=== PATIENT | female | born 1925 | race Caucasian/White ===

== ENCOUNTER 2017-09-03 10:57 | Emergency (ER) | payer MEDICARE, OTHER ==
[2017-09-03] MEDS ORDERED: LIDOCAINE 1% 10 ML VIAL INJ ONE (11:07)
[2017-09-03 11:17] VITALS: O2SAT 97
[2017-09-03] MEDS ORDERED: TETANUS,DIPHTHERIA,PERTUSSIS 1 EA SYG IM ONE (11:45)
[2017-09-03] MEDS ORDERED: SULFA/TRIMETH 800/160 (DS) TAB 1 EA TAB PO ONE (11:45)
--- NOTE | 2017-09-03 11:48 | ED.PDOC ---
History of Present Illness - General Chief Complaint: Laceration Stated Complaint: R hand laceration Time Seen by Provider: 09/03/17 11:43 Source: patient Exam Limitations: no limitations - History of Present Illness Initial Comments: The patient is an 89-year-old female that drove herself in after having injured her right hand while helping her pen cattle. She cut her right hand over the dorsal aspect of the fourth and fifth knuckles with a piece of tin. It does not appear to have lacerated any tendons or ligaments. No evidence of any extension to any joint or any overt fracture. She has good sensation of the tips of her fingers before and after repair. She does have a mild area of decreased sensation just distal to the laceration. Laceration is U shape and approximately 2 inches in length. No other injuries. She does not take any blood thinners. She does not think she is up-to-date on her tetanus. Timing/Duration: momentarily Severity: mild Improving Factors: nothing Worsening Factors: nothing Associated Symptoms: denies symptoms Allergies/Adverse Reactions: Allergies NO KNOWN ALLERGY Allergy (Verified 09/03/17 11:02) Home Medications: Ambulatory Orders Olmesartan Medoxomil-Hydrochlo [Benicar Hct 20-12.5 mg] 1 tab PO BID 09/03/17 Sulfa/Trimeth 800/160 (Ds) Tab [Bactrim DS Tab] 1 ea PO DAILY #7 tab 09/03/17 Review of Systems - Review of Systems Constitutional: States: no symptoms reported EENTM: States: no symptoms reported Respiratory: States: no symptoms reported Cardiology: States: no symptoms reported Gastrointestinal/Abdominal: States: no symptoms reported Genitourinary: States: no symptoms reported Musculoskeletal: States: see HPI Skin: States: see HPI Neurological: States: no symptoms reported Endocrine: States: no symptoms reported All other Systems: No Change from Baseline Past Medical History (General) - Patient Medical History Hx Stroke: No Hx Congestive Heart Failure: No Hx Hypertension: Yes Hx Diabetes: No Hx MRSA: No Surgical History: appendectomy, tonsillectomy, Hysterectomy - Vaccination History Hx Tetanus, Diphtheria Vaccination: - 09/02/17 Hx Influenza Vaccination: Yes - 2016 Hx Pneumococcal Vaccination: Yes - 2017 Immunizations Comment: Has had Shingles vaccination - Social History Hx Tobacco Use: No Family Medical History - Family History Mother Living Status: Physical Exam - Physical Exam General Appearance: Alert, Comfortable, No apparent distress Eye Exam: bilateral normal Ears, Nose, Throat: hearing grossly normal, normal ENT inspection Neck: full range of motion, supple Respiratory: no respiratory distress, no accessory muscle use Cardiovascular/Chest: normal peripheral pulses, no edema Peripheral Pulses: radial,right: 2+, radial,left: 2+, dorsalis pedis,right: 2+, dorsalis pedis,left: 2+ Rectal Exam: deferred Back Exam: no CVA tenderness, no vertebral tenderness Extremity: normal range of motion, no pedal edema, normal capillary refill, other - range of motion of the right hand is preserved. Strength is preserved. 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 After risk and benefits of repair were explained the patient agrees to proceed with the repair. 250 cc of sterile saline were used along with gauze for debridement. 1 % lidocaine was used 3 cc for local anesthetic. 11 simple sutures of 4-0 Ethilon were used for reapproximation. The patient tolerated the procedure well. She needs to avoid making a fist with those fingers for the next week or 2. Sutures need to come out in 10 days. she needs to keep it dry for the next 24-48 hours. Neosporin ointment can be applied several times daily to help keep the edges of the skin hydrated and help with healing. She'll be placed on Bactrim daily for the next 7 days. First dose was given here today. She was given a tetanus shot here today. ER warnings were given for any significant worsening. Estimated blood loss and total is approximately 15 cc. Departure - Departure Clinical Impression: Accidental laceration Disposition: Discharge to Home or Self Care Condition: Fair Departure Forms: ED Discharge - Pt. Copy, Patient Portal Self Enrollment Instructions: DI for Laceration Repair, DI for Laceration Repair -- Simple Diet: regular diet Activity: increase activity as tolerated Referrals: Ajith Lema MD [Primary Care Provider] - 1-2 Weeks Prescriptions: Sulfa/Trimeth 800/160 (Ds) Tab [Bactrim DS Tab] 1 ea PO DAILY #7 tab Home Medications: Ambulatory Orders Olmesartan Medoxomil-Hydrochlo [Benicar Hct 20-12.5 mg] 1 tab PO BID 09/03/17 Sulfa/Trimeth 800/160 (Ds) Tab [Bactrim DS Tab] 1 ea PO DAILY #7 tab 09/03/17 Additional Instructions: the patient is an 89-year-old female presenting to emergency room secondary to a laceration over the dorsal aspect of her fourth and fifth knuckles approximately 2 inches in length on her right hand. 11 simple sutures of 4-0 Ethilon were used for reapproximation. The patient tolerated the procedure well. She needs to avoid making a fist with those fingers for the next week or 2. Sutures need to come out in 10 days. she needs to keep it dry for the next 24-48 hours. Neosporin ointment can be applied several times daily to help keep the edges of the skin hydrated and help with healing. She' ll be placed on Bactrim daily for the next 7 days. First dose was given here today. She was given a tetanus shot here today. ER warnings were given for any significant worsening.
[2017-09-03 12:33] VITALS: BP 154/88; TEMP 98
== END 2017-09-03 12:25 | disposition home or self-care (01) ==
LOC: ER 10:57
DX: S61.411A Laceration without foreign body of right hand, initial encounter (principal); I10 Essential (primary) hypertension; Z23 Encounter for immunization; W45.8XXA Other foreign body or object entering through skin, initial encounter